=== PATIENT | female | born 1975 | race Caucasian/White ===

== ENCOUNTER 2016-08-17 12:11 | Day surgery (SDC) | payer OTHER ==
[~2016-08-17] VITALS: Ht 152.4 cm; Wt 54.4 kg
[~2016-08-17 12:11] MED LIST: Sodium Chloride LOK Flush 10 mL Syringe IV PRN; fentaNYL-PF 50 mCg/mL 2 mL Inj IVPUSH PRN
[2016-08-17 12:45] VITALS: BP 107/71; PULSE 59; RESP 14; O2SAT 100
[2016-08-17] MEDS ORDERED: 0.9% Sodium Chloride 1,000 ML IV ONE (13:24)
[2016-08-17 13:33] VITALS: BP 124/61; PULSE 90; RESP 16; O2SAT 99
[2016-08-17 13:41] VITALS: BP 107/66; PULSE 71; RESP 16; O2SAT 100
[2016-08-17 13:51] VITALS: BP 101/57; PULSE 58; RESP 16; O2SAT 100
--- NOTE | 2016-08-17 14:00 | ENDO ---
[address] [address] ENDOSCOPY PROCEDURE PATIENT: VIVIEN PUGA : 1975 MR#: [id number] ADMIT: 08/17/2016 JOB ID: [id number] TYPE OF OPERATION: 1. Esophagogastroduodenoscopy (EGD) with biopsy. 2. Colonoscopy with biopsy. PREOPERATIVE DIAGNOSIS(ES): Diarrhea. POSTOPERATIVE DIAGNOSIS(ES): 1. Normal upper endoscopy, status post biopsy. 2. Small internal hemorrhoids. ANESTHESIA: Fentanyl 150 mcg and Versed 10 mg IV administered. COMPLICATIONS: None. BLOOD LOSS: Minimal. DESCRIPTION OF PROCEDURE: After the risks benefits were explained to the patient, informed consent was obtained. After anesthesia was administered, the upper endoscope was inserted into the mouth, intubated through the esophagus, stomach, second portion of duodenum and the mucosa carefully examined. After the procedure was done, the scope was withdrawn and the procedure was terminated. FINDINGS: Upon inspection of the esophagus, the esophagus was normal, without masses, ulcers, or lesions. Z-line located at 40 at 40 cm from the incisors. Upon entering the stomach, the stomach was also normal, without masses, ulcers, or lesions. Retroflexion was normal. Duodenal bulb, first and second portion were normal. Biopsies were taken at the duodenum, antrum, and body of the stomach. Upon inspection of the anus, no masses, hemorrhoids, ulcers, or fissures that were seen. Throughout the entire examination, there were no polyps, masses, or lesions. Biopsies were taken at the terminal ileum and random colon. There was some mild oozing after the biopsy of the ascending colon, for which two hemoclips were then placed with good hemostasis. Retroflexion showed small internal hemorrhoids. IMPRESSION: 1. Small internal hemorrhoids. 2. Oozing at the ascending colon biopsy site status post two hemoclips placed with good hemostasis. 3. Normal upper endoscopy, status post biopsy. RECOMMENDATION: Await pathology results. Follow up in GI Clinic as needed.
--- NOTE | 2016-08-22 11:23 | PATH ---
SURGICAL PATHOLOGY Attending Physician:Mak Encarnacion MD CASE STATUS: Signed Out PATIENT NAME: VIVIEN PUGA PID: [id number] : 1975 DATE COLLECTED:08/17/2016 00:00 SPECIMEN: 1: Duodenum, Biopsy 2: Stomach, Antrum, Biopsy 3: Gastric, Biopsy 4: Ileum, Biopsy 5: Colon, Biopsy CLINICAL HISTORY: 1). DUODENUM BIOPSY 2). GASTRIC ANTRUM BIOPSY, RULE OUT H.PYLORI 3). GASTRIC BODY BIOPSY 4). TERMINAL ILEUM BIOPSY 5). RANDOM COLON FINAL DIAGNOSIS: 1. Duodenum Biopsy: Fragments of normal appearing small bowel mucosa. Normal delicate mucosal villi present. Negative for significant inflammation, dysplasia and malignancy. 2. Gastric Antrum Biopsy: Fragments of antral mucosa negative for significant inflammation. Negative for evidence of Helicobacter on H&E stain. Negative for intestinal metaplasia. Negative for dysplasia and malignancy. 3. Gastric Body Biopsy: Gastric fundic mucosa negative for significant inflammation. Negative for evidence of Helicobacter on H&E stain. Negative for intestinal metaplasia. Negative for dysplasia and malignancy. 4. Terminal Ileum Biopsy: Fragments of normal appearing small bowel mucosa consistent with terminal ileum. Negative for granulomas. Negative for significant inflammation, dysplasia and malignancy. 5. Random Colon Biopsies: Fragments of normal appearing colon mucosa. Negative for significant architectural distortion. Negative for significant inflammation, dysplasia and malignancy. ICD10: R10.9 GROSS DESCRIPTION: The specimen is received in five formalin filled containers labeled with the patient's name. 1). The specimen is sublabeled "duodenum" and consists of 2 portions of tissue which aggregate to 0.3 x 0.3 x 0.2 CM. The specimen is entirely submitted in cassette 1A. 2). The specimen is sublabeled "gastric antrum" and consists of 2 portions of tissue which aggregate to 0.2 x 0.2 x 0.2 CM. The specimen is entirely submitted in cassette 2A. 3). The specimen is sublabeled "gastric body" and consists of 3 portions of tissue which aggregate to 0.3 x 0.2 x 0.2 CM. The specimen is entirely submitted in cassettes 3A. 4). The specimen is sublabeled "terminal ileum" and consists of 2 portions of tissue which aggregate to 0.2 x 0.2 x 0.2 CM. The specimen is entirely submitted in cassette 4A. 5). The specimen is sublabeled "random colon" and consists of multiple portions of tissue which aggregate to 0.4 x 0.3 x 0.2 CM. The specimen is entirely submitted in cassette 5A. 08/18/2016 [facility] ICD-9 CODES: CPT CODES: 1: 44171 2: 07403 3: 33065 4: 61779 5: 11768 Electronically Signed Out Owen Contreras MD [facility] Pathology [facility] [address] [facility] [place] [address] Technical component performed at [facility], [facility] [address], [place], [address]
== END 2016-08-17 23:59 | disposition home or self-care (01) ==
LOC: END 12:11
PROVIDERS: ATTEND Internal Medicine Gastroenterology
DX: R19.7 Diarrhea, unspecified (principal); K64.8 Other hemorrhoids; Z80.0 Family history of malignant neoplasm of digestive organs; R14.0 Abdominal distension (gaseous)
CPT/HCPCS: 43239; 45380; 99153; G0500; J2250; J3010; J7030